=== PATIENT | female | born 1945 | race Caucasian/White ===

== ENCOUNTER → 2020-07-25 | Day surgery (SDC) | payer MEDICARE, OTHER ==
[~2020-07-25] MED LIST: ASPIRIN81 MG PO; ATENOLOL50 MG PO; CYMBALTA30 MG PO; DEXAMETHASONE PHOS 24 MG/ML 10ML VIAL ONE; DIAZEPAM5 MG PO; LEVOFLOXACIN250 MG PO; LEVOTHYROXINE75 MCG PO; LIDOCAINE HCL 2% LOCAL INJ 5 ML SDV VIAL INJ ONE; LOSARTAN POTAS100 MG PO; NIFEDIPINE10 MG PO; OFLOXACIN 0.3% (OTIC SOL) 5 ML BTL ONE; OMEPRAZOLE40 MG PO; ONDANSETRON HCL INJ 2MG/ML 2ML 2 MG/ML VIAL ONE; PROPOFOL IV EMULSION 10 MG/ML 20 ML VIAL ONE; SEVOFLURANE INHAL SOLN 250 ML PEN BTL ONE; WARFARIN SODIU2.5 MG PO; ZETIA10 MG PO; ZYRTEC10 M3 PO
[2020-07-25 07:35] LABS: BASOPHILS # (AUTO) 0.1 (0.0-0.1); BASOPHILS % 1.1 % (0.0-1.0); EOSINOPHILS # (AUTO) 0.3 (0.0-0.4); EOSINOPHILS % 3.9 % (0.0-6.0); HEMATOCRIT 30.9 % (34.2-44.1); HEMOGLOBIN 10.1 g/dL (12.0-16.0); LYMPHOCYTES # (AUTO) 3.2 (1.0-3.2); LYMPHOCYTES % 39.5 % (18.0-39.1); MEAN CORPUSCULAR HEMOGLOBIN 24.2 pg (28-32); MEAN CORPUSCULAR HGB CONC 32.7 g/dL (31-35); MEAN CORPUSCULAR VOLUME 74.1 fL (81-99); MONOCYTES # (AUTO) 0.8 (0.2-0.8); MONOCYTES % 9.8 % (4.4-11.3); NEUTROPHILS # (AUTO) 3.6 (2.1-6.9); NEUTROPHILS % 45.4 % (38.7-80.0); PLATELET COUNT 263 x10e3/uL (140-360); RED BLOOD COUNT 4.17 x10e6/uL (3.6-5.1); RED CELL DISTRIBUTION WIDTH 16.4 % (11.7-14.4)
[2020-07-25 07:45] LABS: INR 0.95; PROTHROMBIN TIME 13.2 seconds (11.9-14.5)
[2020-07-25 07:46] LABS: PARTIAL THROMBOPLASTIN TIME 32.8 seconds (23.8-35.5)
--- NOTE | 2020-07-25 08:28 | Diagnostic Imaging Report ---
EXAM: CHEST 2 VIEWS DATE: 07/25/2020 7:42 AM INDICATION: Preoperative evaluation COMPARISON: None FINDINGS: The trachea is midline. There are minimal bibasilar opacities suggestive of atelectasis. The lungs are otherwise symmetrically expanded without evidence for large focal consolidation, pneumothorax, or significant pleural effusion. The cardiomediastinal silhouette is at the upper limits of normal for size. The pulmonary vasculature is within normal limits. Degenerative changes noted of the visualized spine. No acute osseous abnormality is identified. The surrounding soft tissues are unremarkable. IMPRESSION: No acute cardiopulmonary process identified. Signed by: Dr. Remigio Youngblood MD on 07/25/2020 8:25 AM
--- NOTE | 2020-07-25 10:27 | Operative Report ---
DATE OF PROCEDURE: 07/25/2020 SURGEON: Stephen Zhong MD CHIEF COMPLAINT: Right sudden sensorineural hearing loss, eustachian tube dysfunction on the left side. POSTOPERATIVE DIAGNOSIS: Right sudden sensorineural hearing loss, eustachian tube dysfunction on the left side. OPERATIVE PROCEDURE: Bilateral myringotomy and tubes with Decadron instillation to the right middle ear cleft. ANESTHESIA: General anesthesia, [facility]esthesiology Group. INDICATIONS: This 74-year-old female has sudden sensorineural hearing loss in the right ear. The patient was seen about a year ago with mild discrepancy in her hearing, worse on the right side. She had an MRI at that time, which was negative. The patient came back a few weeks ago with worsening of her hearing on the right. She has no recent viral infection and no history of COVID. The audiogram showed the patient has moderate to severe sensorineural hearing loss on the right with mild to moderate sensorineural hearing loss on the left with speech discrimination of 100% bilaterally. It was decided that bilateral myringotomy and tubes with Decadron instillation to the right ear and other necessary procedure will be beneficial for her. The patient has history of aural fullness in the left ear with occasional ear infection on the left. DESCRIPTION OF PROCEDURE: The patient was taken to the operating room, put under general anesthesia. Right ear was examined. The ear canal was debrided. Myringotomy was done in anterior-inferior quadrant. No effusion was noted in middle ear cleft. The Matias grommet tube was inserted. No effusion was noted in middle ear cleft. Decadron 24 mg/mL, 1 mL was instilled into the middle ear. The left ear was examined. The ear canal was debrided. Myringotomy was done in anterior superior quadrant. No effusion was noted in middle ear cleft. Matias grommet tube was inserted. The patient tolerated the above procedure well with minimal blood loss. She was able to be transferred to the recovery room in stable condition. Stephen Zhong MD DK/MODL /[id number]
[2020-07-25 10:49] VITALS: BP 134/65
== END | disposition home or self-care (01) ==
LOC: OR 06:39
PROVIDERS: ATTEND Otolaryngology Otolaryngology/Facial Plastic Surgery
DX: H91.23 Sudden idiopathic hearing loss, bilateral (principal); H69.83 Other specified disorders of Eustachian tube, bilateral; G47.33 Obstructive sleep apnea (adult) (pediatric); E03.9 Hypothyroidism, unspecified; M06.9 Rheumatoid arthritis, unspecified; I48.91 Unspecified atrial fibrillation; I10 Essential (primary) hypertension; N39.0 Urinary tract infection, site not specified; F32.9 Major depressive disorder, single episode, unspecified; F41.9 Anxiety disorder, unspecified; F17.210 Nicotine dependence, cigarettes, uncomplicated; Z79.01 Long term (current) use of anticoagulants; Z79.82 Long term (current) use of aspirin; Z86.73 Personal history of transient ischemic attack (TIA), and cerebral infarction without residual deficits
CPT/HCPCS: 36415; 71046; 85025; 85610; 85730; 93005; J2001; J2405